=== PATIENT | female | born 2000 | race Caucasian/White ===

== ENCOUNTER 2021-10-21 00:12 | Emergency (ER) | payer BC ==
[2021-10-21] MEDS ORDERED: Pantoprazole 40 MG Tab.CR PO STA (00:59)
[2021-10-21] MEDS ORDERED: Ondansetron 4 MG Tab.DIS PO ONE (00:59)
== END 2021-10-21 02:26 | disposition home or self-care (01) ==
LOC: JP.ED 00:12
DX: K22.6 Gastro-esophageal laceration-hemorrhage syndrome (principal); K22.3 Perforation of esophagus; R11.2 Nausea with vomiting, unspecified; Z91.011 Allergy to milk products
CPT/HCPCS: 36415; 80053; 83690; 85025; 99284; A9270; Q0162; 99283